=== PATIENT | male | born 1930 | race Hispanic/Latino ===

== ENCOUNTER → 2017-12-17 | Outpatient (CLI) | payer OTHER ==
[~2017-12-17] MED LIST: CARV6.25 PO; DOCU-116 PO; ENAL2.5T PO; FURO20TA4 PO; GABA-531 PO; LACT1CAP65 PO; MEMA5TAB15 PO; OMEP40CA37 PO; REGADENOSON 0.4 MG/5 ML PF SYG IVP SCH; SIMV40TA59 PO; SOLI5 PO; TERA5CAP4 PO; TYL3 PO; WARF3TAB59 PO
== END | disposition home or self-care (01) ==
LOC: SHCH 14:40
PROVIDERS: ATTEND Internal Medicine Cardiovascular Disease
DX: I48.91 Unspecified atrial fibrillation (principal); I99.8 Other disorder of circulatory system
CPT/HCPCS: 78452; 93017; 96374; A9500 ×2; J2785